=== PATIENT | female | born 1960 | race Caucasian/White ===

== ENCOUNTER 2021-06-26 14:11 | Emergency (ER) | payer OTHER ==
[2021-06-26 15:49] LABS: BASOPHIL 0.8 % (0-2); EOSINOPHIL 0.9 % (0-5); HCT 44.7 % (37.0-47.0); HGB 14.5 g/dl (12.5-16.0); LYMPHOCYTE 32.1 % (15-48); MCH 29.5 pg (25.0-31.0); MCHC 32.4 g/dL (32.0-36.0); MCV 90.9 fL (78.0-100.0); MONOCYTE 5.8 % (0-12); MPV 9.9 fL (6.0-9.5); NEUTROPHIL 60.1 % (41-80); NRBC 0; PLT 285 K/uL (150-400); RBC 4.92 M/uL (4.20-5.40); WBC 6.6 K/uL (4.0-10.5)
[2021-06-26 15:50] LABS: BILIRUBIN NEGATIVE (NEGATIVE); BLOOD NEGATIVE Ery/uL (NEGATIVE); CLARITY HAZY (CLEAR); COLOR YELLOW (YELLOW); GLUCOSE (U) NORMAL (NORMAL); LEUKOCYTES TRACE Leu/uL (NEGATIVE); NITRITE NEGATIVE (NEGATIVE); PROTEIN NEGATIVE (NEGATIVE); SPECIFIC GRAVITY 1.025 (1.001-1.030); UROBILINOGEN 0.2 mg/dL (0.2-1.0); pH 5.5 (5.0-9.0)
[2021-06-26 15:55] LABS: BARBITURATES NEGATIVE (NEGATIVE); ECSTASY (MDMA) NEGATIVE (NEGATIVE); MARIJUANA (THC) NEGATIVE (NEGATIVE); METHADONE NEGATIVE (NEGATIVE); OPIATES NEGATIVE (NEGATIVE)
[2021-06-26 15:56] LABS: AMPHETAMINES NEGATIVE (NEGATIVE); OXYCODONE NEGATIVE (NEGATIVE)
[2021-06-26 16:06] LABS: BACTERIA TRACE; URINARY RBC RARE
[2021-06-26 16:16] LABS: BUN/CREAT RATIO (CALC) 17.3 RATIO; CREATININE 1.1 mg/dL (0.51-0.95)
== END 2021-06-26 19:53 | disposition home or self-care (01) ==
LOC: FER 14:11
PROVIDERS: Nurse Practitioner Family
DX: R07.89 Other chest pain (principal); R06.02 Shortness of breath; R51.9 Headache, unspecified; E86.0 Dehydration
CPT/HCPCS: 36415; 71045; 80048; 80305; 81001; 84484; 85025; 93005; J1885; J7030